=== PATIENT | female | born 1980 | race African-American/Black ===

== ENCOUNTER 2016-12-06 10:33 | Emergency (ER) | payer MEDICARE, MEDICAID ==
[~2016-12-06] VITALS: Ht 165.1 cm; Wt 78.0 kg
[2016-12-06] MEDS ORDERED: ASPIRIN 81 MG TABLET CHEW PO ONE (11:00)
[2016-12-06] MEDS ORDERED: SODIUM CHLORIDE FLUSH 10ML SYR IVF ONE (11:00)
[2016-12-06] MEDS ORDERED: PLEASE ENTER ALLERGIES MC SCH ×2 (11:00)
[2016-12-06] MEDS ORDERED: SODIUM CHLORIDE 0.9% 1,000ML IVBOLUS ONE (11:00)
[2016-12-06] MEDS ORDERED: LORazepam 2 MG/ML, 1ML IVPush ONE (11:00)
[2016-12-06] MEDS ORDERED: NITROGLYCERIN SINGLE TAB 0.4 MG SL PRN (11:00)
[2016-12-06] MEDS ORDERED: NITROGLYCERIN SINGLE TAB 0.4 MG SL ONE (11:01)
[2016-12-06] MEDS ORDERED: LORazepam 2 MG/ML, 1ML ONE (11:01)
[2016-12-06] MEDS ORDERED: ASPIRIN 81 MG TABLET CHEW ONE (11:01)
[2016-12-06] MEDS ORDERED: VALP250C59 PO (11:31)
[2016-12-06] MEDS ORDERED: LEVO112T2 PO (11:31)
[2016-12-06] MEDS ORDERED: TOPI100T24 PO (11:31)
[2016-12-06] MEDS ORDERED: ZOLP-413 PO (11:31)
[2016-12-06] MEDS ORDERED: HYDR-882 PO (11:31)
[2016-12-06] MEDS ORDERED: QUET400T6 PO (11:31)
[2016-12-06] MEDS ORDERED: DULO60CA7 PO (11:31)
[2016-12-06] MEDS ORDERED: GABA300C10 PO (11:31)
[2016-12-06 11:35] LABS: HEMATOCRIT 39.3 % (34.6-47.8); HEMOGLOBIN 12.6 g/dL (11.7-16.4); WHITE BLOOD COUNT 10.3 x10^3/uL (3.4-10)
[2016-12-06 11:43] LABS: BLOOD UREA NITROGEN 10 mg/dL (7-18)
[2016-12-06 11:52] LABS: IS PT STATUS REG ER OR PRE ER? YES
[2016-12-06 13:00] VITALS: BP 140/89
== END 2016-12-06 13:12 | disposition home or self-care (01) ==
LOC: ED 12:42
DX: R07.2 Precordial pain (principal); E11.9 Type 2 diabetes mellitus without complications; M79.7 Fibromyalgia
CPT/HCPCS: 36415; 71010; 80048; 82040; 84484; 85025; 85379; 93005; 96361; 96374; 99285; J2060; J7030